=== PATIENT | male | born 1990 | race Two or more races ===

== ENCOUNTER 2018-02-09 13:35 | Emergency (ER) | payer OTHER ==
[~2018-02-09] VITALS: Ht 182.9 cm; Wt 94.6 kg
[2018-02-09 13:37] VITALS: BP 119/81
[2018-02-09] MEDS ORDERED: HYDROcodone/APAP 5/325 TABLET ONE (14:27)
[2018-02-09] MEDS ORDERED: HYDROcodone/APAP 5/325 TABLET PO ONE (14:30)
== END 2018-02-09 15:33 | disposition home or self-care (01) ==
LOC: ED 14:09
DX: S05.11XA Contusion of eyeball and orbital tissues, right eye, initial encounter (principal); W22.8XXA Striking against or struck by other objects, initial encounter; Y93.89 Activity, other specified; Y92.89 Other specified places as the place of occurrence of the external cause; Y99.8 Other external cause status
CPT/HCPCS: 70150; 99284